=== PATIENT | female | born 1995 | race Caucasian/White ===

== ENCOUNTER → 2016-09-08 | Outpatient (CLI) | payer OTHER ==
--- NOTE | 2016-09-08 13:49 | DIAGNOSTIC IMAGING REPORT ---
MRI OF THE LEFT ANKLE WITHOUT IV CONTRAST CLINICAL HISTORY: Left ankle injury. COMPARISON STUDY: Radiographs of the left ankle dated 07/10/2016. TECHNIQUE: MRI of the left ankle was performed utilizing various T1 and T2-weighted sequences in the axial, sagittal and coronal planes. IV contrast was not administered for this examination. FINDINGS: There is mild marrow edema seen within the posteromedial talus. Normal marrow signal intensity is otherwise preserved throughout the visualized bony structures. There is no MRI evidence of fracture. No osteochondral defect is seen in the talar dome. There is a small joint effusion. The Achilles tendon is normal in morphology and signal intensity. The anterior, posterior, and peroneal tendons appear intact. There is age indeterminant rupture of the anterior talofibular ligament. There has also been disruption of the anterior tibiofibular ligament. The deltoid and spring ligaments appear intact as visualized. The imaged plantar fascia is normal in appearance. The regional musculature is normal in bulk and signal intensity. Normal fat is maintained within the sinus tarsi. IMPRESSION: 1. There is nonspecific marrow edema seen within the posteromedial aspect of the talus. No fracture or osteochondral defect is identified. 2. Findings are consistent with age indeterminant tearing of the anterior talofibular and tibiofibular ligaments. 3. The ankle tendons appear intact. Dictated: 09/08/2016 1:30 PM Transcribed: 09/08/2016 1:48 PM Gonzalo Electronically signed by: Vijay Tyson M.D. 09/08/2016 1:59 PM Dictated Date/Time: 09/08/2016 1:30 PM
== END | disposition home or self-care (01) ==
LOC: C.MRIBC 12:11
PROVIDERS: ATTEND Internal Medicine
DX: S99.912A Unspecified injury of left ankle, initial encounter (principal); X58.XXXA Exposure to other specified factors, initial encounter